=== PATIENT | male | born 1940 | race Caucasian/White ===

== ENCOUNTER → 2023-11-20 11:13 | Outpatient (REF) | payer MEDICARE, BC, SELFPAY ==
[2023-11-20 15:13] LABS: ALT (SGPT) 11 U/L (0-50); AST (SGOT) 28 U/L (17-59); Alkaline Phosphatase 83 U/L (38-126); Blood Urea Nitrogen 20 mg/dl (9-20); Calcium 9.8 mg/dl (8.4-10.2); Carbon Dioxide 29 mmol/L (22-30); Chloride 106 mmol/L (98-107); Glucose 85 mg/dl (70-99); Potassium 4.4 mmol/L (3.5-5.1); Sodium 140 mmol/L (135-145); Total Bilirubin 0.9 mg/dl (0.2-1.3); Total Protein 6.6 g/dl (6.3-8.2); eGFR > 60.00
[2023-11-20 15:29] LABS: NT-proBNP 234 pg/ml
[2023-11-20 15:46] LABS: TSH 1.04 uIU/ml (0.47-4.68)
== END ==
LOC: HWLAB 11:13
PROVIDERS: ATTENDING PHYSICIAN Internal Medicine Cardiovascular Disease; FAMILY PHYSICIAN Internal Medicine
DX: I42.8 Other cardiomyopathies (principal); R53.83 Other fatigue
CPT/HCPCS: 36415; 80053; 83880; 84443

== ENCOUNTER → 2023-11-29 11:32 | Outpatient (REF) | payer MEDICARE, BC, SELFPAY | LOC: DHCBC/DCA 11:32 | PROVIDERS: ATTENDING PHYSICIAN Internal Medicine Cardiovascular Disease; FAMILY PHYSICIAN Internal Medicine | DX: I42.8 Other cardiomyopathies (principal); Z98.890 Other specified postprocedural states; I25.10 Atherosclerotic heart disease of native coronary artery without angina pectoris; I44.7 Left bundle-branch block, unspecified; R53.83 Other fatigue | CPT/HCPCS: 78452; 93017; A9500; J2785 ==

== ENCOUNTER → 2023-12-04 14:42 | Outpatient (REF) | payer MEDICARE, BC, SELFPAY | LOC: HWRCS 14:42 | PROVIDERS: ATTENDING PHYSICIAN Internal Medicine Cardiovascular Disease; FAMILY PHYSICIAN Internal Medicine | DX: I42.8 Other cardiomyopathies (principal); I44.7 Left bundle-branch block, unspecified; R53.83 Other fatigue | CPT/HCPCS: 93306 ==

== ENCOUNTER → 2024-06-17 09:15 | Outpatient (REF) | payer MEDICARE, BC, SELFPAY | LOC: RAD 09:15 | PROVIDERS: ATTENDING PHYSICIAN Urology | DX: N20.0 Calculus of kidney (principal) | CPT/HCPCS: 74018 ==

== ENCOUNTER → 2024-12-19 13:34 | Outpatient (REF) | payer MEDICARE, BC, SELFPAY | LOC: MRI 13:34 | PROVIDERS: ATTENDING PHYSICIAN Physician Assistant Medical; FAMILY PHYSICIAN Internal Medicine | DX: M17.0 Bilateral primary osteoarthritis of knee (principal); M25.561 Pain in right knee | CPT/HCPCS: 73721 ==

== ENCOUNTER → 2025-03-23 08:25 | Outpatient (REF) | payer MEDICARE, BC, SELFPAY ==
[2025-03-23 09:35] LABS: Hematocrit 47.4 % (39.0-52.0); Hemoglobin 15.8 g/dL (13.0-18.0); Mean Corp Hgb Conc. 33.3 g/dL (33.0-37.0); Mean Corpuscular Volume 93.7 fL (80.0-94.0); Platelet Count 171 10^3/uL (130-400); Red Cell Dist. Width 12.9 % (11.5-14.5)
[2025-03-23 10:20] LABS: ALT (SGPT) 24 U/L (0-50); AST (SGOT) 30 U/L (17-59); Albumin 4.2 g/dl (3.5-5.0); Alkaline Phosphatase 76 U/L (38-126); Blood Urea Nitrogen 21 mg/dl (9-20); Calcium 9.5 mg/dl (8.4-10.2); Carbon Dioxide 31 mmol/L (22-30); Chloride 106 mmol/L (98-107); Glucose 91 mg/dl (70-99); HDL Cholesterol 44 mg/dl; LDL Cholesterol, Calculated 61 mg/dl; Magnesium 2.0 mg/dl (1.6-2.3); Potassium 4.8 mmol/L (3.5-5.1); Sodium 141 mmol/L (135-145); Total Protein 6.9 g/dl (6.3-8.2); Very Low Density Lipoprotein 30 mg/dl (0-30); eGFR > 60.00
== END ==
LOC: REG 08:25
PROVIDERS: ATTENDING PHYSICIAN Internal Medicine Cardiovascular Disease; FAMILY PHYSICIAN Internal Medicine
DX: I42.9 Cardiomyopathy, unspecified (principal); Z01.818 Encounter for other preprocedural examination; I10 Essential (primary) hypertension
CPT/HCPCS: 36415; 80053; 80061; 83735; 83880; 84443; 85027

== ENCOUNTER 2025-03-25 06:03 | Day surgery (SDC) | payer MEDICARE, BC, SELFPAY ==
--- NOTE | 2025-03-11 11:41 | VNURNOTE ---
Patient is scheduled for an elective R TKA on 03/25 - he is a same day patient with Dr Hanks. Spoke with patient prior to surgery. Introduced role of [facility] Liaison. Patient reports that he lives with his in an apt
He has a rolling walker.
PCP is Dr Willian Frankel
Discussed [facility] joint protocol and post surgical plans.
Reviewed that he will have VN services initially and will then start outpatient PT.
Patient selects [facility] for his home care needs and will go to ' the PT in my [facility] community' for outpatient PT. Scheduled for '4 days after surgery.'
Patient is in agreement with plan and states that his will be home with him. Advised to bring RW with him day of surgery. [facility] contact number provided. Referral placed in [facility].
Plan: [facility] per [facility] joint protocol 03/25 then outpt PT on 03/30
--- NOTE | 2025-03-12 15:12 | CM ---
Demographics: confirmed
Living situation: Lives in [facility] community
Support Person Post Operatively:
History of
VN: no
SNF: no
Outpatient: At [facility]
Has patient purchased required equipment: yes, walker
PCP: active
Pharmacy: [facility]
Post Operative Discharge Plan: [facility], [facility]. and then transition to outpatient PT.
[2025-03-20 11:05] LABS: Hematocrit 44.3 % (39.0-52.0); Hemoglobin 14.7 g/dL (13.0-18.0); Mean Corp Hgb Conc. 33.2 g/dL (33.0-37.0); Mean Corpuscular Volume 91.0 fL (80.0-94.0); Platelet Count 169 10^3/uL (130-400); Red Cell Dist. Width 12.9 % (11.5-14.5)
[2025-03-20 11:33] LABS: Glycohemoglobin (HgbA1c) 5.7 % (4.0-5.6)
[2025-03-20 13:16] LABS: ALT (SGPT) < 10 U/L (0-50); AST (SGOT) 27 U/L (17-59); Albumin 4.1 g/dl (3.5-5.0); Alkaline Phosphatase 64 U/L (38-126); Blood Urea Nitrogen 19 mg/dl (9-20); Calcium 9.6 mg/dl (8.4-10.2); Carbon Dioxide 30 mmol/L (22-30); Chloride 108 mmol/L (98-107); Glucose 111 mg/dl (70-99); Potassium 5.0 mmol/L (3.5-5.1); Sodium 143 mmol/L (135-145); Total Protein 6.5 g/dl (6.3-8.2); eGFR > 60.00
[2025-03-20 14:01] VITALS: BMI 28.0
[2025-03-20 18:26] VITALS: BMI 28.0
[2025-03-25] VITALS (12 sets, daily range): BP systolic 118–159; BP diastolic 69–94; PULSE 80; O2SAT 91
[2025-03-25] MEDS: CELEBREX 200 MG PO (07:15)
[2025-03-25] MEDS: TYLENOL 650 MG PO (07:15)
[2025-03-25] MEDS: SUBLIMAZE 25 MCG IV (09:19)
[2025-03-25] MEDS: FLOMAX 0.4 MG PO (11:05)
[2025-03-25] MEDS: ROXICODONE 5 MG PO (11:29)
[2025-03-25] MEDS: ANCEF 5 IV (12:02)
== END 2025-03-25 12:50 | disposition home health service (06) ==
LOC: SDS 06:03
PROVIDERS: ATTENDING PHYSICIAN Orthopaedic Surgery; FAMILY PHYSICIAN Internal Medicine; OTHER PHYSICIAN Physician Assistant; REFERRING PHYSICIAN Internal Medicine Cardiovascular Disease
DX: M17.11 Unilateral primary osteoarthritis, right knee (principal)
CPT/HCPCS: 27447; C1776; 36415; 73560; 80053; 83036; 85027; 87070; 97116; 97162; C1713